=== PATIENT | female | born 1945 | race Hispanic/Latino ===

== ENCOUNTER 2019-09-11 07:49 | Day surgery (SDC) | payer MEDICARE ==
[~2019-09-11] VITALS: Ht 144.8 cm; Wt 49.4 kg
[2019-09-11] VITALS (7 sets, daily range): BP systolic 99–160; BP diastolic 36–57
[~2019-09-11 07:49] MED LIST: AMLO10TA7 PO; ASPI-1181 PO; CAPT25TA3 PO; CHOL500062 PO; CLON1PAT4 TD; CLOP75TA14 PO; FERS325 PO; METO25TA6 PO; PRAV80TA21 PO; SODIUM CHLORIDE 0.9% 1000ML 1,000 ML IV ONE
[2019-09-11] MEDS ORDERED: PROPOFOL 10 MG/ML 20ML VIAL IV ONE (10:14)
--- NOTE | 2019-09-11 11:08 | NUR ---
DC DC INSTRUCTIONS GIVEN TO PT DAUGHTER INSTRUCTED TO F/U WITH DR. LEWIS , TO CONTINUE HOME MEDS. PT WAITING FOR RIDE TO GO HOME. PATIENT STABLE. DAUGHTER WITH HER.
--- NOTE | 2019-09-11 11:30 | NUR ---
DC PT DC HOME VIA WC,NO DISTRESS NOTED PT DENIED ANY PAIN OR DISCOMFORTS. PT ACCOMPANIED BY DAUGHTER
== END 2019-09-11 11:30 | disposition home or self-care (01) ==
LOC: DAH 07:49 → ENDO 07:49 → DAH 10:50 → ENDO 10:50
PROVIDERS: ATTEND Internal Medicine Gastroenterology
DX: D50.9 Iron deficiency anemia, unspecified (principal); K29.50 Unspecified chronic gastritis without bleeding; B96.81 Helicobacter pylori [H. pylori] as the cause of diseases classified elsewhere; I73.9 Peripheral vascular disease, unspecified; I10 Essential (primary) hypertension; I25.2 Old myocardial infarction; K59.00 Constipation, unspecified; D69.8 Other specified hemorrhagic conditions; E78.5 Hyperlipidemia, unspecified; I25.10 Atherosclerotic heart disease of native coronary artery without angina pectoris; M85.80 Other specified disorders of bone density and structure, unspecified site; M81.0 Age-related osteoporosis without current pathological fracture; Z90.710 Acquired absence of both cervix and uterus; Z79.82 Long term (current) use of aspirin; Z79.899 Other long term (current) drug therapy
CPT/HCPCS: 43239; 45378; 88305; A4215; A4221; A4222; A4223; A4606; A4620; A4663; J2704; J7030